=== PATIENT | male | born 1955 | race Caucasian/White ===

== ENCOUNTER 2016-10-22 19:40 | Emergency (ER) | payer OTHER ==
[~2016-10-22] VITALS: Ht 185.4 cm; Wt 115.7 kg
--- OUTSIDE RECORDS SUMMARY | 2016-10-22 19:44 | XMS REPORT | Continuity of Care Document ---
Author Author [facility] Organization [facility] Address Unknown Phone Unavailable Allergies Active Description Code Type Severity Reaction Onset Reported/Identified Relationship to Patient Clinical Status Yes PAIN MEDICATION Drug Allergy N/A N/A Yes No Known Allergies Drug Allergy 09/10/2012 Yes No Known Allergies Drug Allergy N/A N/A 09/10/2012 Yes No Known Drug Allergies Drug Allergy 09/10/2012 Yes No Known Drug Allergies Drug Allergy N/A N/A 09/10/2012 Yes No Known Food Allergies Food Allergy 09/10/2012 Yes No Known Food Allergies Food Allergy N/A N/A 09/10/2012 Medications Problems Date Dx Coded Attending Type Code Diagnosis Diagnosed By 09/10/2012 Moses Gutierrez MD Final 250.00 DM2/NOS UNCOMP NSU 09/10/2012 Moses Gutierrez MD Final 305.1 TOBACCO USE DISORDER 09/10/2012 Moses Gutierrez MD Final 401.9 HYPERTENSION NOS 09/10/2012 Moses Gutierrez MD Final 816.11 OP FX MID/PROX PHAL HAND 09/10/2012 Moses Gutierrez MD Final 883.0 OPEN WND FINGER 09/10/2012 Moses Gutierrez MD Final 883.2 OPEN WND FINGER W TENDON 09/10/2012 Moses Gutierrez MD Final 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 09/10/2012 Moses Gutierrez MD Final 903.5 DIGITAL VESSEL INJURY 09/10/2012 Moses Gutierrez MD Final 955.2 INJURY ULNAR NERVE 09/10/2012 Moses Gutierrez MD Final 955.3 INJURY RADIAL NERVE 09/10/2012 Moses Gutierrez MD Final 955.6 INJURY DIGITAL NERVE 09/10/2012 Moses Gutierrez MD External E849.0 HOME ACCIDENTS 09/10/2012 Moses Gutierrez MD External E919.4 [facility] Procedures Code [place] [address] DEBRIDE TISSUE/MUSCLE/BONE Moses Gutierrez MD 09/10/2012 77769 REPAIR SUPERFICIAL WOUND(S) Moses Gutierrez MD 09/10/2012 [id number] REPAIR FINGER/HAND TENDON Moses Gutierrez MD 09/10/2012 09102 REPAIR FINGER/HAND TENDON Moses Gutierrez MD 09/10/2012 09646 REPAIR FINGER TENDON Moses Gutierrez MD 09/10/2012 37811 FUSION OF FINGER JOINT Moses Gutierrez MD 09/10/2012 91728 REPAIR BLOOD VESSEL LESION Moses Gutierrez MD 09/10/2012 23211 REPAIR OF DIGIT NERVE Moses Gutierrez MD 09/10/2012 [id number] REPAIR NERVE ADD-ON Moses Gutierrez MD 09/10/2012 Results Encounters ACCT No. Visit Date/Time Discharge Status Pt. Type Provider Facility Loc./Unit Complaint [id number] 09/10/2012 13:17:00 2012 12:09:00 DIS Outpatient Moses Gutierrez MD [facility] on [address]
[2016-10-22 19:49] VITALS: Ht 185.4 cm; Wt 115.7 kg
--- OUTSIDE RECORDS SUMMARY | 2016-10-22 20:23 | XMS REPORT | Continuity of Care Document ---
Author Author [facility] Organization [facility] Address Unknown Phone Unavailable Allergies Active [...] ACCIDENTS 09/10/2012 Moses Gutierrez MD External E919.4 [employer] Procedures Code Description [place] [address] DEBRIDE TISSUE/MUSCLE/BONE Moses Gutierrez MD 09/10/2012 89175 REPAIR SUPERFICIAL WOUND(S) Moses Gutierrez MD 09/10/2012 70482 REPAIR FINGER/HAND TENDON Moses Gutierrez MD 09/10/2012 70826 REPAIR FINGER/HAND TENDON Moses Gutierrez MD 09/10/2012 69560 REPAIR FINGER TENDON Moses Gutierrez MD 09/10/2012 90524 FUSION OF FINGER JOINT Moses Gutierrez MD 09/10/2012 03071 REPAIR BLOOD VESSEL LESION Moses Gutierrez MD 09/10/2012 91198 REPAIR OF DIGIT NERVE Moses Gutierrez MD 09/10/2012 30552 REPAIR NERVE ADD-ON Moses Gutierrez MD 09/10/2012 Results Encounters ACCT No. Visit Date/Time Discharge Status Pt. Type Provider Facility Loc./Unit Complaint [id number] 09/10/2012 13:17:00 2012 12:09:00 DIS Outpatient Moses Gutierrez MD [facility] on [address]
[2016-10-22] MEDS ORDERED: KETOROLAC 60mg/2ml INJECTION IM ONE (20:30)
[2016-10-22] MEDS ORDERED: ORPHENADRINE 60mg/2ml INJECTION IM ONE (20:30)
[2016-10-22] MEDS ORDERED: LISI-621 PO (20:52)
--- NOTE | 2016-10-22 20:56 | ERPDOC ---
Departure Disposition Decision Date: October 22, 2016 Disposition Decision Time: 21:25 Disposition: 01 DISCHARGED HOME, SELF-CARE Impression Impression Impression: Primary Impression: Low back pain Chronicity: acute Back pain laterality: right Sciatica presence: without sciatica Qualified Codes: M54.5 - Low back pain Severity: Moderate Condition: Stable Seen By: Mid-level only Patient Instructions: Acute Low Back Pain (ED) Problems/Meds/Labs Reviewed?: Yes Medications reviewed and manag: Yes Additional Instructions: Take the [place] and the Cyclobenzaprine as needed for pain. I do want you to follow up with your primary care provider this week if you are not improving at all. Follow up care ordered?: Yes Mental Status: Alert, Oriented Scripts Hydrocodone/Acetaminophen ([place] 5-325 Tablet) 5-325 Tablet 1 TAB PO Q6H Y for PAIN, #12 TAB 0 Refills Prov: WESLEY VIRK APRN 10/22/16 Cyclobenzaprine HCl (Cyclobenzaprine HCl) 10 Mg Tablet 1 TAB PO TID, #15 TAB 0 Refills Prov: WESLEY VIRK APRN 10/22/16 HPI - Back Pain General Chief Complaint: Low Back Pain or Injury Stated Complaint: BACK PAIN Time Seen by Provider: 20:09 Source: patient Exam Limitations: no limitations HPI - Back Pain Initial Comments He has onset of low back pain over the last week. He did not fall or have any specific injury that set this off. He has had pain like this once in the past. States that he came to ER and got a trigger point injection and it helped quite a bit. Has been taking OTC medication at home for the pain but it has not really helped. 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 Denies any numbness/tingling/ or weakness in his legs. Denies any fever or chills. Occurred At: home Onset/Timing: Gradual Duration: 1 week Severity/Quality: moderate Location: lumbar spine 1 - area of pain, no TTP however. Associated Sypmtoms: lower back pain, muscle spasms, DENIES: fever, loss of bladder control, loss of bowel control, numbness in legs/feet, sensory/motor loss, tingling in legs/feet, weakness Hx of Similar Symptoms: No Allergies: Coded Allergies: oxycodone HCl (Verified Adverse Reaction, Mild, hallucinations, 10/22/16) Past History Past Medical History Musculoskeletal: back pain Surgical History Joint: knee Family History Family History: Negative Social History Smoking Status: Never smoker Substance Use Type: does not use Alcohol Intake: none Review of Systems Constitutional Constitutional: DENIES: chills, dizziness, fatigue, fever, weakness Eyes Vision: DENIES: blurring, double vision Cardiovascular Cardiac: DENIES: chest pain, orthopnea Rhythm/Rate: DENIES: irregular beat, palpitations Pulmonary Respiratory: DENIES: cough, dyspnea, sputum, tachypnea GI Upper Abdomen: DENIES: nausea, pain, vomiting Lower Abdomen: DENIES: constipation, diarrhea, pain Musculoskeletal General: pain (low back pain) Integumentary Skin: DENIES: rash Neurological General: DENIES: headache, numbness, tingling, weakness Physical Exam General General Nourishment: well nourished, well developed, appears stated age, no acute distress, adult General Body Habitus: well groomed Vitals and Pain First Documented Vital Signs Date Time Temp Pulse Resp B/P Pulse Ox O2 Delivery O2 Flow Rate FiO2 10/22/16 19:49 98.2 76 16 114/78 96 Room Air Weight: Kilograms: 115.700 Height (feet): 6 Height (inches): 1.00 Triage Pain Scale: RN VS reviewed by Provider: Yes Normal Exams: Neck: Full range of motion, without adenopathy, JVD, bruits or thyromegaly Chest/Resp: Clear all hollins, with good airflow, and symmetry bilaterally CV: Regular rate and rhythm, without murmur or gallop, Pulses 2+ all extremities, capillary refill, <2 seconds all ext., no pedal edema noted Abdomen: Bowel sounds positive, soft, non-tender, non-distended, no hepatosplenomegaly, masses or bruits noted Lymphatic: No lymphadenopathy, or lymphedema noted Musculoskeletal: No tenderness, or deformity noted, good range of motion, all extremities Integumentary: No rashes, hives, or bruising noted Neurologic: Patient is alert, and oriented Psychiatric: Patient exhibits, appropriate attention, emotion and affect Musculoskeletal (brief) Musculoskeletal Brief: NOT FOUND: tenderness (Denies any TTP over the lumbar spine or SI joints. He is able to move BLE easily with strength of 5/5. Sensation is intact. ) Differential Diagnoses Considering: Disc Herniation, Fracture, Lumbar Sprain, Lumbar Strain Progress Results/Orders Orders Procedure Category Date Status Time Orphenadrine (Norflex) PHA 10/22/16 Complete 20:30 Ketorolac (Toradol) PHA 10/22/16 Complete 20:30 Cyclobenzaprine PHA 10/22/16 In Process (Prepack) (Flexeril 21:30 Hydrocodone/Apap PHA 10/22/16 In Process 5/ Prepack ([place] 5 21:30 Medications Current ED Medications Orphenadrine Citrate (Norflex) 60 mg O ONCE IM Last administered on 10/22/16 20:40; Start 10/22/16 at 20:30; Stop 10/22/16 at 20:31; Status DC Ketorolac Tromethamine (Toradol) 60 mg O ONCE IM Last administered on t 20:41; Start 10/22/16 at 20:30; Stop 10/22/16 at 20:31; Status DC Cyclobenzaprine HCl (FLEXERIL (PrePack)) 1 pack O ONCE SENT HOME ; Start at 21:30; Stop 10/22/16 at 21:31 Acetaminophen/ Hydrocodone Bitart (NORCO 5 (PrePack)) 1 pack O ONCE SENT HOME ; Start 10/22/16 at 21:30; Stop 10/22/16 at 21:31 Progress Progress Pain is improved today. Will go ahead and let him go home with Rx for [place] and Flexeril. Have him follow up with his primary care provider for reevaluation. If any further issues/concerns then return to Er. WESLEY VIRK APRN October 22, 2016 20:56
[2016-10-22] MEDS ORDERED: CYCL-375 PO (21:26)
[2016-10-22] MEDS ORDERED: HYDR-4246 PO (21:26)
[2016-10-22] MEDS ORDERED: CYCLOBENZAPRINE 10MG (PrePack) SENT HOME ONE (21:30)
[2016-10-22] MEDS ORDERED: HYDROCODONE/APAP 5/325 (PrePack) SENT HOME ONE (21:30)
[2016-10-22 21:35] VITALS: BP 119/81; PULSE 79; RESP 16; TEMP 98.2; O2SAT 97
== END 2016-10-22 21:35 | disposition home or self-care (01) ==
LOC: ED 19:40
DX: M54.5 Low back pain (principal)
CPT/HCPCS: 96372; 99283; J1885; J2360